=== PATIENT | female | born 1945 | race African-American/Black ===

== ENCOUNTER → 2021-11-11 | Outpatient (CLI) | payer MEDICARE, OTHER | END | disposition home or self-care (01) | LOC: MRI 10:18 | PROVIDERS: ATTEND Internal Medicine Geriatric Medicine | DX: M50.13 Cervical disc disorder with radiculopathy, cervicothoracic region (principal); M50.11 Cervical disc disorder with radiculopathy, high cervical region; M50.121 Cervical disc disorder at C4-C5 level with radiculopathy; M50.122 Cervical disc disorder at C5-C6 level with radiculopathy; M50.123 Cervical disc disorder at C6-C7 level with radiculopathy; M50.23 Other cervical disc displacement, cervicothoracic region; M50.21 Other cervical disc displacement, high cervical region; M50.221 Other cervical disc displacement at C4-C5 level; M50.222 Other cervical disc displacement at C5-C6 level; M50.223 Other cervical disc displacement at C6-C7 level | CPT/HCPCS: 72141 ==

== ENCOUNTER → 2023-06-03 | Outpatient (CLI) | payer MEDICARE, OTHER | END | disposition home or self-care (01) | LOC: RAD 12:33 | PROVIDERS: ATTEND Internal Medicine Geriatric Medicine | DX: Z91.81 History of falling (principal) | CPT/HCPCS: 73560 ==

== ENCOUNTER → 2024-04-11 | Outpatient (CLI) | payer MEDICARE, OTHER | END | disposition home or self-care (01) | LOC: RAD 09:30 | PROVIDERS: ATTEND Internal Medicine Geriatric Medicine | DX: Z13.820 Encounter for screening for osteoporosis (principal); M81.0 Age-related osteoporosis without current pathological fracture | CPT/HCPCS: 77080 ==

== ENCOUNTER → 2025-01-23 | Outpatient (CLI) | payer MEDICARE, OTHER | END | disposition home or self-care (01) | LOC: PVL 09:32 | PROVIDERS: ATTEND Internal Medicine Geriatric Medicine | DX: E11.51 Type 2 diabetes mellitus with diabetic peripheral angiopathy without gangrene (principal) | CPT/HCPCS: 93880; 93923 ==

== ENCOUNTER → 2025-01-24 | Outpatient (CLI) | payer MEDICARE, OTHER | END | disposition home or self-care (01) | LOC: EDSTATUS 09:40 → CARD 09:41 | PROVIDERS: ATTEND Internal Medicine Geriatric Medicine | DX: I08.1 Rheumatic disorders of both mitral and tricuspid valves (principal); I11.0 Hypertensive heart disease with heart failure; I50.9 Heart failure, unspecified; R60.9 Edema, unspecified | CPT/HCPCS: 93306 ==